=== PATIENT | male | born 1995 | race American Indian/Alaskan Native ===

== ENCOUNTER 2017-04-21 08:08 | Day surgery (SDC) | payer OTHER ==
[2017-04-21] MEDS ORDERED: Propofol 10 mg/ml Inj (20 ML) ONE ×2 (10:37→10:42)
[2017-04-21] MEDS ORDERED: Midazolam 2 MG/2 ML VIAL ONE (10:42)
[2017-04-21 11:25] VITALS: TEMP 97.2
[2017-04-21 12:28] VITALS: BP 112/66; PULSE 52; RESP 15; O2SAT 99
== END 2017-04-21 12:26 | disposition home or self-care (01) ==
LOC: C.ENDO 08:08
PROVIDERS: ATTEND Internal Medicine Gastroenterology
DX: D12.2 Benign neoplasm of ascending colon (principal); K52.9 Noninfective gastroenteritis and colitis, unspecified; K64.8 Other hemorrhoids
CPT/HCPCS: 45388; 88305; J2250; J2704